=== PATIENT | male | born 1995 | race Caucasian/White ===

== ENCOUNTER 2018-05-29 00:09 | Emergency (ER) | payer OTHER ==
--- NOTE | 2018-05-29 00:21 | EDPHY ---
H & P Stated Complaint: AMS, agitation Time Seen by Provider: 05/29/18 00:14 HPI/ROS: HPI The patient presents with altered mental status with combative behavior tonight while attending a music concert. He was leaving the concert and seemed agitated , with security, he was combative and seemed intoxicated. He admitted to LSD use tonight. He is brought in by ambulance and paramedics gave him Haldol and Benadryl with improvement in his symptoms. He denied any traumatic injuries. His blood glucose was 95. . REVIEW OF SYSTEMS Constitutional: No fever, no chills. Eyes: No discharge. ENT: No sore throat. Cardiovascular: No chest pain, no palpitations. Respiratory: No cough, no shortness of breath. Gastrointestinal: No abdominal pain, no vomiting. Genitourinary: No hematuria. Musculoskeletal: No back pain. Skin: No rashes. Neurological: No headache. PMHx: Healthy Soc Hx: Visiting from [place] for the concert, staying with a friend in [place] PHYSICAL General Appearance: Alert, no distress Eyes: Pupils equal and round no pallor or injection ENT, Mouth: Mucous membranes moist Respiratory: There are no retractions, lungs are clear to auscultation Cardiovascular: Regular rate and rhythm Gastrointestinal: Abdomen is soft and non-tender, no masses, bowel sounds normal Neurological: A&O, moves all extremities Skin: Warm and dry, no rashes Musculoskeletal: Neck is supple non tender Extremities: symmetrical, full range of motion Psychiatric: Patient is oriented X 3, there is no agitation Source: Patient, EMS Exam Limitations: Intoxication Constitutional: Initial Vital Signs Temperature (C) 36.4 C 05/29/18 00:18 Heart Rate 117 H 05/29/18 00:18 Respiratory Rate 18 05/29/18 00:18 Blood Pressure 139/78 H 05/29/18 00:18 O2 Sat (%) 92 05/29/18 00:18 O2 Delivery Mode Room Air Allergies/Adverse Reactions: No Known Allergies Allergy (Unverified 05/29/18 00:23) Medical Decision Making Differential Diagnosis: 22-year-old male who presents brought in by ambulance from [place] [employer] with altered mental status and combative behavior initially requiring restraints. Mental status improved after receiving Haldol and Benadryl. He is now awake and alert though under talkative. I question if he is having ongoing hallucinations. He did admit to LSD use tonight. His physical exam is unremarkable for any external signs of trauma. Differential diagnosis includes LSD intoxication, alcohol intoxication, less likely psychotic break. 3:45 a.m.- Patient is now more awake and alert, able to walk with a steady gait. He says he does remember taking acid but the remainder of the night is a blur. He does not have his phone with him anymore and does not know his local friend' s phone number. We will observe him here until the morning. 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 Referrals: NONE *PRIMARY CARE P,. [Primary Care Provider] - As per Instructions
[2018-05-29 06:41] VITALS: BP 120/75
== END 2018-05-29 06:39 | disposition home or self-care (01) ==
DX: R41.0 Disorientation, unspecified (principal); F16.10 Hallucinogen abuse, uncomplicated